=== PATIENT | male | born 1945 | race Caucasian/White ===

== ENCOUNTER 2016-12-21 05:28 | Day surgery (SDC) | payer MEDICARE, OTHER ==
[~2016-12-21 05:28] MED LIST: ALLERGY RELIEF180 M1 PO; ALTOCOR20 MG; ASPIRIN81 M1 PO; ATENOLOL100 MG; ATENOLOL50 MG; ATORVASTATIN CA80 M1 PO; CELEBREX200 MG; ETODOLAC400 MG/TAB PO; HYDROCODON-ACE1 EA16 PO; LOTENSIN20 M1 PO; MULTIVITAMINS1 EAC6 PO; NORVASC5 M2 PO; TENORMIN100 M1 PO; TENORMIN100 MG; TRAMADOL HCL50 M2 PO; TYLENOL EXTRA500 M1 PO; TYLENOL650 MG
[2016-12-21 06:14] LABS: URINE APPEARANCE CLEAR; URINE BILIRUBIN NEGATIVE (NEG); URINE BLOOD SMALL (NEG); URINE COLOR YELLOW; URINE GLUCOSE (UA) NEGATIVE (NEG); URINE KETONE NEGATIVE (NEG); URINE LEUKOCYTE ESTERASE NEGATIVE (NEG); URINE NITRITE NEGATIVE (NEG); URINE PROTEIN SMALL (NEG)
[2016-12-21 06:28] LABS: URINE RBC 0-3 /[HPF] (0-5); URINE WBC 0 /[HPF] (0-5)
[2016-12-21 06:29] LABS: URINE EPITHELIAL CELLS 0-1 /[HPF] (0-10)
== END 2016-12-21 14:55 ==
LOC: SHSB 05:28 → ORE 07:25 → SHSB 10:35
PROVIDERS: Orthopaedic Surgery
PROC: 01NB0ZZ Release Lumbar Nerve, Open Approach (ICD-10-PCS; principal; 2016-12-21)
DX: M48.06 Spinal stenosis, lumbar region (principal); M43.16 Spondylolisthesis, lumbar region; M47.26 Other spondylosis with radiculopathy, lumbar region; I10 Essential (primary) hypertension; I73.9 Peripheral vascular disease, unspecified; M19.90 Unspecified osteoarthritis, unspecified site; E11.9 Type 2 diabetes mellitus without complications; K21.9 Gastro-esophageal reflux disease without esophagitis; G47.30 Sleep apnea, unspecified; E66.01 Morbid (severe) obesity due to excess calories; Z68.38 Body mass index [BMI] 38.0-38.9, adult; Z87.891 Personal history of nicotine dependence; Z98.890 Other specified postprocedural states
CPT/HCPCS: J0690